=== PATIENT | male | born 1980 | race Caucasian/White ===

== ENCOUNTER → 2020-05-17 07:01 | Outpatient (CLI) | payer OTHER, SELFPAY ==
[2020-05-17 08:19] LABS: Hemoglobin A1C% w Est Avg Glu 5.1 % (4.0-6.0)
[2020-05-17 08:30] LABS: Cholesterol 221 mg/dL (140-199); HDL Cholesterol 60 mg/dL (40-60); LDL Cholesterol Calculated 152 mg/dL (<100); Triglycerides 43 mg/dL (35-150)
== END ==
PROVIDERS: Family Provider Family Medicine; PCP Family Medicine; Referring Provider Family Medicine; Visit Provider Family Medicine
DX: Z00.01 Encounter for general adult medical examination with abnormal findings (principal)
CPT/HCPCS: 36415; 80061; 83036

== ENCOUNTER → 2020-12-08 13:26 | Outpatient (CLI) | payer OTHER, SELFPAY ==
--- NOTE | 2020-12-08 13:29 | DI.RAD.S_ITS ---
PROCEDURE: XR FINGER LT MIN 2V INDICATIONS: l ring finger pain TECHNIQUE: AP hand, 2 views of the 4th finger(s) acquired. COMPARISON: None. FINDINGS: Bones: There is a nondisplaced fracture seen involving the mid aspect of distal phalanx of the 4th finger. No intra-articular involvement is seen. No additional fractures are detected. No suspicious lytic or blastic lesions are seen. Soft tissues: No suspicious soft tissue calcifications. IMPRESSION: Nondisplaced fracture of the distal phalanx of the 4th finger. Dictated by: Jesse Arguelles M.D. on 12/08/2020 at 12:50 Approved by: Jesse Arguelles M.D. on 12/08/2020 at 12:51
== END ==
PROVIDERS: Family Provider Family Medicine; PCP Family Medicine; Referring Provider Physician Assistant; Visit Provider Physician Assistant
DX: M79.645 Pain in left finger(s) (principal); S62.665A Nondisplaced fracture of distal phalanx of left ring finger, initial encounter for closed fracture; X58.XXXA Exposure to other specified factors, initial encounter
CPT/HCPCS: 73140

== ENCOUNTER → 2021-01-22 16:40 | Outpatient (CLI) | payer OTHER, SELFPAY ==
--- NOTE | 2021-01-22 16:41 | DI.RAD.S_ITS ---
PROCEDURE: XR HAND LT MIN 3V INDICATIONS: Follow up fracture TECHNIQUE: 3 views of the hand(s) acquired. COMPARISON: [facility], CR, XR FINGER LT MIN 2V, 12/08/2020, 13:30. FINDINGS: Bones: No previously unidentified fractures or dislocations. Carpal bones are normally aligned. No suspicious bony lesions. Continued healing 4th distal phalanx diaphyseal fracture. Virtual anatomic alignment. Soft tissues: No suspicious soft tissue calcifications. IMPRESSION: Virtual anatomic alignment during healing 4th distal phalanx fracture. Dictated by: Jose Sherman M.D. on 01/23/2021 at 10:35 Approved by: Jose Sherman M.D. on 01/23/2021 at 10:36
== END ==
PROVIDERS: Family Provider Family Medicine; PCP Family Medicine; Referring Provider Family Medicine; Visit Provider Family Medicine
DX: S62.635D Displaced fracture of distal phalanx of left ring finger, subsequent encounter for fracture with routine healing (principal); X58.XXXD Exposure to other specified factors, subsequent encounter
CPT/HCPCS: 73130

== ENCOUNTER 2021-11-25 21:53 | Emergency (ER) | payer OTHER, MEDICAID, SELFPAY ==
[2021-11-25 21:59] VITALS: BP 144/86; PULSE 64; RESP 20; TEMP 36.6; O2SAT 98; BMI 23.5
--- NOTE | 2021-11-25 22:30 | PC.NURSE ---
upon pt was somewhat cooperative with care, as time went on pt escalated with increase in talking loud, pacing increased, yelling and cursing with staff
--- NOTE | 2021-11-25 22:55 | PC.NURSE ---
patient's behavior has escalated,he lacks insight and is pacing and talking loudlfy and rapidly.DR Cha notified and is in room.
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
[2021-11-25] MEDS: OLANZapine ODT 10 MG TAB PO (23:06)
[2021-11-25 23:25] LABS: Add Manual Diff / Slide Review NO; Basophils Absolute Auto 100 /uL (0-100); Basophils Percent Auto 0.9 % (0-2); Eosinophils Absolute Auto 100 /uL (0-450); Eosinophils Percent Auto 0.6 % (2-4); Hematocrit 39.1 % (41-53); Hemoglobin 13.4 g/dL (13.5-17.5); Lymphocytes Absolute Auto 2200 /uL (1100-4500); Lymphocytes Percent Auto 19.6 % (25-40); Mean Corpuscular HGB Conc 34.3 % (30-36); Mean Corpuscular Hemoglobin 32.4 PG (26-34); Mean Corpuscular Volume 94.6 fL (80-100); Monocytes Absolute Auto 1100 /uL (0-900); Monocytes Percent Auto 9.9 % (3-14); Neutrophils Absolute Auto 7800 /uL (1500-7000); Platelet Count 472 X10^3/uL (150-400); Red Blood Cell Count 4.14 X10^6/uL (4.5-5.9); Red Cell Distribution Width 13.1 % (11.6-14.8); White Blood Cell Count 11.3 X10^3/uL (4.5-11.0)
[2021-11-25 23:32] LABS: Appearance Urine UA CLEAR; Bilirubin Urine UA NEGATIVE (NEGATIVE); Color Urine UA YELLOW; Glucose Urine UA NEGATIVE (Negative); Ketones Urine UA NEGATIVE (NEGATIVE); Leukocyte Esterase Urine UA NEGATIVE (NEGATIVE); Nitrite Urine UA NEGATIVE (Negative); Occult Blood Urine UA NEGATIVE (Negative); Protein Urine UA NEGATIVE (Negative); Specific Gravity Urine UA <=1.005 (1.000-1.035); Urobilinogen Urine UA 0.2 E.U./dL (0.2); pH Urine UA 6.5 (4.5-8.0)
[2021-11-25 23:34] LABS: Alanine Aminotransferase 53 IU/L (<50); Albumin 5.3 g/dL (3.5-5.0); Albumin Globulin Ratio 1.4 (1.0-2.8); Alkaline Phosphatase 64 U/L (38-126); Aspartate Aminotransferase 82 IU/L (17-59); BUN Creatinine Ratio 8.9 (6-22); Bilirubin Total 1.4 mg/dL (0.2-1.3); Blood Urea Nitrogen 7 mg/dL (9-20); Calcium 9.8 mg/dL (8.4-10.2); Carbon Dioxide 24 mmol/L (22-32); Chloride 102 mmol/L (98-107); Estimated Glomerular Filt Rate > 60 mL/min (>60); Ethanol (ETOH) < 10 mg/dL; Globulin 3.7 g/dL (1.7-4.1); Glucose 135 mg/dL (70-100); HEMOLYSIS < 15 (0-50); Potassium 3.5 mmol/L (3.4-5.1); Sodium 135 mmol/L (137-145)
[2021-11-25 23:40] LABS: Ur Creatinine 20 (Normal); Ur Specific Gravity <1.005 (Normal); Urine pH 6.5 (Normal)
[2021-11-25 23:41] LABS: UR Morphine/Opiate cutoff 300 Negative (Negative); Urine Amphetamines Negative (Negative); Urine Barbiturates Negative (Negative); Urine Benzodiazepines Negative (Negative); Urine Cocaine Negative (Negative); Urine MDMA Negative (Negative); Urine Methadone Negative (Negative); Urine Methamphetamines Negative (Negative); Urine Oxycodone Negative (Negative); Urine Phencyclidine Negative (Negative); Urine Tetrahydrocannabinol Positive (Negative); Urine Tricyclic Antidepressant Negative (Negative)
[2021-11-26 01:27] LABS: Bacteria Urine None Seen; Culture Indicated Urine Cult Not Indicated; RBC Urine None Seen (0-5/HPF); WBC Urine None Seen (0-5/HPF)
[2021-11-26 03:24] VITALS: BP 140/84; PULSE 72; RESP 18; O2SAT 99
--- NOTE | 2021-11-26 07:46 | PC.NURSE ---
pt spouse called, pt stated i could share information with her. she was concerned that he would be released. the police have put her up at different location, not at their home. she explained she wanted to know how long she had to do things, i explained if she is in fear of her safety to always assume he could walk out of here and to keep herself safe.
--- NOTE | 2021-11-26 09:39 | PC.NURSE ---
Mom came to visit patient. pt refused to see mother. Wanted me to tell her only that he loved her and he will contact her in a week. Pt ok'd that I give his mom his car keys. Mom reported that she needed to move it or it would be towed. pt is calm . mom updated only on what patient asked me to tell her.
[2021-11-26 10:25] LABS: COVID19 -Nasal RAPID Negative (Negative)
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
[2021-11-26 12:43] VITALS: BP 158/92; PULSE 63; RESP 18; TEMP 36.8; O2SAT 99
--- NOTE | 2021-11-26 14:15 | PC.NURSE ---
on the phone with DCR.
--- NOTE | 2021-11-26 14:18 | PC.NURSE ---
Pt speaking with Charlotte with DCR on the Ipad
--- NOTE | 2021-11-26 14:40 | PC.NURSE ---
Pt finished talking with Charlotte from DCR and is now reading magazines.
[2021-11-26 19:24] VITALS: BP 138/81; PULSE 62; RESP 18; O2SAT 100
[2021-11-26 19:26] VITALS: TEMP 36.3
[2021-11-26 21:24] VITALS: BP 138/92; PULSE 68; RESP 18; O2SAT 100
== END 2021-11-26 21:34 ==
PROVIDERS: Emergency Medicine; Emergency Provider Emergency Medicine; Family Provider Family Medicine; PCP Family Medicine
DX: F30.9 Manic episode, unspecified (principal); F12.90 Cannabis use, unspecified, uncomplicated; Z20.822 Contact with and (suspected) exposure to COVID-19
CPT/HCPCS: 36415; 80053; 80305; 80320; 81001; 85025; 87635; 99284; C9803

== ENCOUNTER 2021-12-20 19:33 | Emergency (ER) | payer OTHER, SELFPAY ==
[2021-12-20 19:43] VITALS: BP 131/77; PULSE 70; RESP 18; TEMP 36.5; O2SAT 99; BMI 25.0
--- NOTE | 2021-12-20 20:40 | PC.NURSE ---
pt states he takes lithium and risperdal and he said I know if you start vomiting there is a concern with taking these medications denies any diarrhea or abd pain
[2021-12-20] MEDS: ONDANSETRON 4 MG/2 ML INJ IV (21:31)
[2021-12-20] MEDS: SODIUM CHLORIDE 0.9% 1,000 ML 1000 ML IV (21:31)
[2021-12-20] MEDS: PANTOPRAZOLE 40 MG VIAL IV (21:31)
[2021-12-20 21:52] LABS: Add Manual Diff / Slide Review NO; Basophils Absolute Auto 100 /uL (0-100); Basophils Percent Auto 0.8 % (0-2); Eosinophils Absolute Auto 200 /uL (0-450); Eosinophils Percent Auto 2.5 % (2-4); Hematocrit 35.1 % (41-53); Hemoglobin 12.2 g/dL (13.5-17.5); Lymphocytes Absolute Auto 1300 /uL (1100-4500); Lymphocytes Percent Auto 15.4 % (25-40); Mean Corpuscular HGB Conc 34.8 % (30-36); Mean Corpuscular Hemoglobin 32.7 PG (26-34); Mean Corpuscular Volume 93.9 fL (80-100); Monocytes Absolute Auto 500 /uL (0-900); Monocytes Percent Auto 6.5 % (3-14); Neutrophils Absolute Auto 6300 /uL (1500-7000); Neutrophils Percent Auto 74.8 % (50-75); Platelet Count 359 X10^3/uL (150-400); Red Blood Cell Count 3.74 X10^6/uL (4.5-5.9); Red Cell Distribution Width 13.3 % (11.6-14.8); White Blood Cell Count 8.4 X10^3/uL (4.5-11.0)
[2021-12-20 22:01] LABS: Alanine Aminotransferase 70 IU/L (<50); Albumin 4.2 g/dL (3.5-5.0); Albumin Globulin Ratio 1.4 (1.0-2.8); Alkaline Phosphatase 45 U/L (38-126); Aspartate Aminotransferase 44 IU/L (17-59); BUN Creatinine Ratio 17.4 (6-22); Bilirubin Total 0.8 mg/dL (0.2-1.3); Blood Urea Nitrogen 12 mg/dL (9-20); Calcium 8.9 mg/dL (8.4-10.2); Carbon Dioxide 25 mmol/L (22-32); Chloride 103 mmol/L (98-107); Estimated Glomerular Filt Rate > 60 mL/min (>60); Globulin 3.1 g/dL (1.7-4.1); Glucose 110 mg/dL (70-100); HEMOLYSIS < 15 (0-50); Potassium 3.8 mmol/L (3.4-5.1); Sodium 136 mmol/L (137-145); Total Protein 7.3 g/dL (6.3-8.2)
[2021-12-20 22:08] LABS: Magnesium 1.8 mg/dL (1.6-2.3)
[2021-12-20 22:10] LABS: Lithium 0.5 mmol/L (0.6-1.2)
--- NOTE | 2021-12-20 23:02 | ED_ITS ---
HPI - Nausea/Vomiting/Diarrhea General Chief complaint: Nausea/Vomiting/Diarrhea Stated complaint: NVD Time Seen by Provider: 12/20/21 20:43 Source: patient Mode of arrival: Ambulatory History of Present Illness HPI Narrative: 41M neversmoker with history of social anxiety disorder and GERD presents with nausea and vomiting over the course of the day, concerned he has been unable to keep much other than water down. He denies any fever chills nor upper respiratory symptoms such as runny nose, sore throat or cough. He has no abdominal pain. He seems to think that his symptoms correlate with the recent change in medications in that his prescription is unchanged but he switched pharmacies and states the pills look different, this includes lithium and Risperdal which were initially filled at [facility] but for some reason the recent prescription was filled at [facility]. He is otherwise well and free of complaint, denies any exposure to bad food, recent travel or exposure to ill persons Related Data Previous Rx's Medication Instructions Recorded hydroxyzine HCl 25 mg tablet 25 mg PO BEDTIME PRN #60 tab 12/12/21 lithium carbonate 300 mg capsule 300 mg PO TID #90 cap 12/12/21 risperidone 1 mg tablet (Risperdal) 1 mg PO BID #120 tab 12/12/21 lithium carbonate 300 mg capsule 300 mg PO TID 14 Days #42 cap 12/20/21 ondansetron 4 mg disintegrating 4 mg PO TID-QID PRN #10 tab 12/20/21 tablet pantoprazole 40 mg tablet,delayed 40 mg PO DAILY #30 tab 12/20/21 release (Protonix) risperidone 1 mg tablet 1 mg PO BID #30 tab 12/20/21 Allergies Allergy/AdvReac Type Severity Reaction Status Date / Time bacitracin Allergy Unknown Verified 01/22/21 16:14 [From Neosporin ([id number])] neomycin Allergy Unknown Verified 01/22/21 16:14 [From Neosporin ([id number])] Penicillins [PENICILLINS] Allergy Unknown Verified 01/22/21 16:10 polymyxin B Allergy Unknown Verified 01/22/21 16:14 [From Neosporin ([id number])] Review of Systems Review of Systems Narrative: GENERAL: See HPI HEENT: Denies sinus pain, ear pain, sore throat, difficulty swallowing, dizziness. RESPIRATORY: See HPI CARDIOVASCULAR: Denies chest pain, palpitations, orthopnea, edema, GASTROINTESTINAL: See HPI : Denies dysuria, frequency, incontinence, hematuria, urinary retention. MUSCULOSKELETAL: denies weakness, joint pain, or bony pain SKIN: Denies rash, skin lesions, or other NEUROLOGIC: Denies weakness, headache, numbness, change in speech, confusion, seizures, incoordination. PSYCHIATRIC: No concerning psychosocial issues. 12 point review of systems is negative except for those stated above Patient History Medical History Allergies (~1977) Bipolar I disorder Chicken pox (~1983) Chronic back pain (~2017) Foot pain (~2014) Gastroesophageal reflux disease without esophagitis (05/27/15) History of seizure Hyperlipidemia Social anxiety disorder (~1977) Surgical History Anesthesia History of placement of ear tubes Status post adenoidectomy Family History Father Age: 68 Hypertension Hyperlipidemia Mother Age: 68 Hyperlipidemia Hypertension Social History Smoking Status: Never smoker Smoking Status: Never smoker Substance Use Type: marijuana Exam Narrative Exam Narrative: GENERAL: [41] year old patient appears stated age. Well-developed patient, in mild distress. Holding an emesis bag, anxious HEAD: Atraumatic. Normocephalic. EYES: Pupils equal round and reactive. Extraocular motions intact. No scleral icterus. No injection or drainage. ENT: Nose without bleeding, purulent drainage. Throat without erythema, tonsillar hypertrophy or exudate. Airway patent. NECK: Trachea midline. Non tender CARDIOVASCULAR: Regular rate and rhythm without murmurs, gallops, or rubs. RESPIRATORY: Clear to auscultation. Breath sounds equal bilaterally. No wheezes, rales, or rhonchi. GASTROINTESTINAL: Abdomen soft, non-tender, nondistended. EXTREMITIES: No edema or joint tenderness. BACK: Nontender without deformity or crepitance. No flank tenderness. NEURO: AOx3. SKIN: No rash or erythema of visible areas Initial Vital Signs Initial Vital Signs: Vital Signs Temperature 97.7 F 12/20/21 19:43 Pulse Rate 70 12/20/21 19:43 Respiratory Rate 18 12/20/21 19:43 Blood Pressure 131/77 12/20/21 19:43 Pulse Oximetry 99 12/20/21 19:43 Course Orders Ordered: Discontinued Medications Sodium Chloride (Normal Saline 0.9%) 1,000 mls @ 1,000 mls/hr IV BOLUS ONE Stop: 12/20/21 21:50 Last Infusion: 12/20/21 23:20 Dose: 0 mls/hr Documented by: Admin: 12/20/21 21:31 Dose: 1,000 mls/hr Documented by: CATRACHO Ondansetron HCl (Ondansetron 4 Mg/2 Ml Inj) 4 mg IV NOW ONE Stop: 12/20/21 20:52 Last Admin: 12/20/21 21:31 Dose: 4 mg Documented by: CATRACHO Ondansetron HCl (Ondansetron 4 Mg Odt Prepack) 1 bottle MISC SEEINSTR ONE Stop: 12/20/21 23:10 Last Admin: 12/20/21 23:14 Dose: 1 bottle Documented by: CATRACHO Pantoprazole Sodium (Pantoprazole 40 Mg Vial) 40 mg IV NOW ONE Stop: 12/20/21 20:52 Last Admin: 12/20/21 21:31 Dose: 40 mg Documented by: CATRACHO Reevaluation(s) Reevaluation #1: Significant if not complete resolution of symptoms after above-stated therapies Vital Signs Vital signs: Vital Signs - 8 hr 12/20/21 19:43 Temperature 97.7 F Pulse Rate 70 Respiratory Rate 18 Blood Pressure 131/77 Pulse Oximetry 99 MDM - Nausea/Vomiting/Diarrhea Lab Data Result diagrams: 12/20/21 21:40 12/20/21 21:40 Labs: Lab Results 12/20/21 12/20/21 12/20/21 Range/Units 21:40 21:40 21:40 WBC 8.4 (4.5-11.0) X10^3/uL RBC 3.74 L (4.5-5.9) X10^6/uL Hgb 12.2 L (13.5-17.5) g/dL Hct 35.1 L (41-53) % MCV 93.9 (80-100) fL MCH 32.7 (26-34) PG MCHC 34.8 (30-36) % RDW 13.3 (11.6-14.8) % Plt Count 359 (150-400) X10^3/uL Neut % (Auto) 74.8 (50-75) % Lymph % (Auto) 15.4 L (25-40) % [place] % (Auto) 6.5 (3-14) % Eos % (Auto) 2.5 (2-4) % Baso % (Auto) 0.8 (0-2) % Neut # (Auto) 6300 (5740-1705) /uL Lymph # (Auto) 1300 (1033-9979) /uL [place] # (Auto) 500 (0-900) /uL Eos # (Auto) 200 (0-450) /uL Baso # (Auto) 100 (0-100) /uL Sodium (137-145) mmol/L Potassium (3.4-5.1) mmol/L Chloride (98-107) mmol/L Carbon Dioxide (22-32) mmol/L BUN (9-20) mg/dL Creatinine (0.66-1.25) mg/dL Estimated GFR (>60) mL/min BUN/Creatinine Ratio (6-22) Glucose (70-100) mg/dL Calcium (8.4-10.2) mg/dL Magnesium 1.8 (1.6-2.3) mg/dL Total Bilirubin (0.2-1.3) mg/dL AST (17-59) IU/L ALT (<50) IU/L Alkaline Phosphatase (38-126) U/L Total Protein (6.3-8.2) g/dL Albumin (3.5-5.0) g/dL Globulin (1.7-4.1) g/dL Albumin/Globulin Ratio (1.0-2.8) [place] 0.5 L (0.6-1.2) mmol/L 12/20/21 Range/Units 21:40 WBC (4.5-11.0) X10^3/uL RBC (4.5-5.9) X10^6/uL Hgb (13.5-17.5) g/dL Hct (41-53) % MCV (80-100) fL MCH (26-34) PG MCHC (30-36) % RDW (11.6-14.8) % Plt Count (150-400) X10^3/uL Neut % (Auto) (50-75) % Lymph % (Auto) (25-40) % [place] % (Auto) (3-14) % Eos % (Auto) (2-4) % Baso % (Auto) (0-2) % Neut # (Auto) (8856-9227) /uL Lymph # (Auto) (4745-3515) /uL [place] # (Auto) (0-900) /uL Eos # (Auto) (0-450) /uL Baso # (Auto) (0-100) /uL Sodium 136 L (137-145) mmol/L Potassium 3.8 (3.4-5.1) mmol/L Chloride 103 (98-107) mmol/L Carbon Dioxide 25 (22-32) mmol/L BUN 12 (9-20) mg/dL Creatinine 0.69 (0.66-1.25) mg/dL Estimated GFR > 60 (>60) mL/min BUN/Creatinine Ratio 17.4 (6-22) Glucose 110 H (70-100) mg/dL Calcium 8.9 (8.4-10.2) mg/dL Magnesium (1.6-2.3) mg/dL Total Bilirubin 0.8 (0.2-1.3) mg/dL AST 44 (17-59) IU/L ALT 70 H (<50) IU/L Alkaline Phosphatase 45 (38-126) U/L Total Protein 7.3 (6.3-8.2) g/dL Albumin 4.2 (3.5-5.0) g/dL Globulin 3.1 (1.7-4.1) g/dL Albumin/Globulin Ratio 1.4 (1.0-2.8) [place] (0.6-1.2) mmol/L [facility] Narrative Medical decision making narrative: Patient with very reassuring history and physical exam. He has no signs of sepsis or significant dehydration. He feels significant if not complete resolution of symptoms after above-stated therapies. He is tolerating orals and in no pain. Vital signs are stable. Labs are unremarkable. And there is potentially a temporal relationship between his symptoms and a new prescription location, for this reason I refilled his medications and sent them to the original pharmacy. Return precautions discussed and questions answered to his apparent satisfaction Discharge Plan Departure Patient Disposition: Home Clinical Impression: Nausea & vomiting Instructions: DI for Vomiting -- Adult Activity Restrictions/Additional Instructions: *You have been diagnosed with [nausea and vomiting. As we discussed her history and physical exam are reassuring and there are no significant abnormalities in the lab work. It is hard to ignore that the symptoms started soon after your prescription being filled at a different pharmacy, but impossible to say with certainty if this is the cause. *What to do: *Please continue to take your regular medications as directed. [x ] New medication prescriptions sent to your pharmacy: [ [facility] in [place]] [ ] New medication written as a paper prescription [ ] No new medications given *Please follow up with your primary care provider in 2-3 days, call for an appointment. Let them know you were seen in the Emergency Department and that we ask that you be seen in follow up. We will electronically transmit a record of today's note if your PCP is in our system * as we discussed, please consider a clear liquid diet for the next 24-48 hours and then advance slowly as tolerated wall minimizing alcohol, caffeine and nicotine. *If you do not have a primary care provider please contact the [facility] Resource line at [phone]. They will ask some questions about your medical history and help get you set up with a doctor in the community. *Return to Emergency Department if you should have any new, worsening or concerning symptoms, such as [fever greater than 101 F, shaking chills, worsening pain, persistent vomiting or other bothersome symptoms] Prescriptions: New pantoprazole [Protonix] 40 mg tablet,delayed release (DR/EC) 40 mg PO DAILY Qty: 30 0RF ondansetron 4 mg tablet,disintegrating 4 mg PO TID-QID PRN (Reason: nausea and vomiting) Qty: 10 0RF lithium carbonate 300 mg capsule 300 mg PO TID 14 Days Qty: 42 0RF risperidone 1 mg tablet 1 mg PO BID Qty: 30 0RF No Action hydroxyzine HCl 25 mg tablet 25 mg PO BEDTIME PRN (Reason: insomnia) Qty: 60 2RF lithium carbonate 300 mg capsule 300 mg PO TID Qty: 90 0RF risperidone [Risperdal] 1 mg tablet 1 mg PO BID Qty: 120 0RF Referrals: David Cerna MD [Primary Care Provider] - Visit Report Forms: Patient Portal/API
[2021-12-20] MEDS: ONDANSETRON 4 MG ODT PREPACK 1 BOTTLE MISC (23:14)
[2021-12-20 23:20] VITALS: BP 126/74; PULSE 68; RESP 18; O2SAT 100
== END 2021-12-20 23:22 | disposition home or self-care (01) ==
PROVIDERS: Emergency Provider Emergency Medicine; Family Provider Family Medicine; PCP Family Medicine
DX: R11.2 Nausea with vomiting, unspecified (principal)
CPT/HCPCS: 36415; 80053; 80178; 83735; 85025; 96361; 96374; 96375; 99284; C9113; J2405

== ENCOUNTER → 2022-03-04 07:07 | Outpatient (CLI) | payer OTHER, MEDICAID, SELFPAY ==
[2022-03-04 08:25] LABS: Add Manual Diff / Slide Review NO; Basophils Absolute Auto 0 /uL (0-100); Eosinophils Absolute Auto 300 /uL (0-450); Eosinophils Percent Auto 8.6 % (2-4); Hematocrit 36.9 % (41-53); Hemoglobin 12.7 g/dL (13.5-17.5); Lymphocytes Absolute Auto 1700 /uL (1100-4500); Lymphocytes Percent Auto 42.9 % (25-40); Mean Corpuscular HGB Conc 34.3 % (30-36); Mean Corpuscular Hemoglobin 32.5 PG (26-34); Mean Corpuscular Volume 94.8 fL (80-100); Monocytes Absolute Auto 500 /uL (0-900); Monocytes Percent Auto 12.3 % (3-14); Neutrophils Absolute Auto 1400 /uL (1500-7000); Neutrophils Percent Auto 35.2 % (50-75); Platelet Count 282 X10^3/uL (150-400); Red Blood Cell Count 3.89 X10^6/uL (4.5-5.9); Red Cell Distribution Width 13.3 % (11.6-14.8)
[2022-03-04 08:53] LABS: Alanine Aminotransferase 14 IU/L (<50); Albumin 4.3 g/dL (3.5-5.0); Albumin Globulin Ratio 1.6 (1.0-2.8); Alkaline Phosphatase 41 U/L (38-126); Aspartate Aminotransferase 20 IU/L (17-59); BUN Creatinine Ratio 13.6 (6-22); Bilirubin Total 1.7 mg/dL (0.2-1.3); Blood Urea Nitrogen 12 mg/dL (9-20); Calcium 9.3 mg/dL (8.4-10.2); Carbon Dioxide 28 mmol/L (22-32); Chloride 102 mmol/L (98-107); Estimated Glomerular Filt Rate > 60 mL/min (>60); Globulin 2.7 g/dL (1.7-4.1); Glucose 92 mg/dL (70-100); HEMOLYSIS < 15 (0-50); Potassium 4.7 mmol/L (3.4-5.1); Sodium 137 mmol/L (137-145)
== END ==
PROVIDERS: Family Provider Family Medicine; PCP Family Medicine; Referring Provider Family Medicine; Visit Provider Family Medicine
DX: D64.9 Anemia, unspecified (principal); R74.8 Abnormal levels of other serum enzymes
CPT/HCPCS: 36415; 80053; 85025

== ENCOUNTER → 2022-10-21 07:08 | Outpatient (CLI) | payer OTHER, MEDICAID, SELFPAY ==
[2022-10-21 07:51] LABS: Add Manual Diff / Slide Review NO; Basophils Absolute Auto 100 /uL (0-100); Basophils Percent Auto 0.9 % (0-2); Eosinophils Absolute Auto 500 /uL (0-450); Eosinophils Percent Auto 8.1 % (2-4); Hematocrit 38.4 % (41-53); Hemoglobin 12.9 g/dL (13.5-17.5); Lymphocytes Absolute Auto 2800 /uL (1100-4500); Lymphocytes Percent Auto 47.1 % (25-40); Mean Corpuscular HGB Conc 33.7 % (30-36); Mean Corpuscular Hemoglobin 32.1 PG (26-34); Mean Corpuscular Volume 95.3 fL (80-100); Monocytes Absolute Auto 700 /uL (0-900); Neutrophils Absolute Auto 1900 /uL (1500-7000); Neutrophils Percent Auto 31.9 % (50-75); Platelet Count 308 X10^3/uL (150-400); Red Blood Cell Count 4.03 X10^6/uL (4.5-5.9); Red Cell Distribution Width 13.2 % (11.6-14.8); White Blood Cell Count 5.9 X10^3/uL (4.5-11.0)
[2022-10-21 08:42] LABS: HEMOLYSIS < 15 (0-50); Iron 149 ug/dL (49-181)
[2022-10-21 08:44] LABS: Bilirubin Direct 0.1 mg/dL (0.0-0.4); Bilirubin Total 1.4 mg/dL (0.2-1.3)
[2022-10-21 08:53] LABS: Percent Iron Saturation 49 % (20-50); Total Iron Binding Capacity 306 ug/dL (261-462); Transferrin 255 mg/dL (206-381)
[2022-10-21 09:09] LABS: TSH w/ Reflex to FT4 3.18 uIU/mL (0.47-4.68)
[2022-10-21 09:13] LABS: Ferritin 67 ng/mL (18-464)
[2022-10-21 09:27] LABS: Vitamin B12 812 pg/mL (239-931)
== END ==
PROVIDERS: Family Provider Family Medicine; PCP Family Medicine; Referring Provider Family Medicine; Visit Provider Family Medicine
DX: D64.9 Anemia, unspecified (principal); E78.5 Hyperlipidemia, unspecified; F31.9 Bipolar disorder, unspecified; R20.9 Unspecified disturbances of skin sensation; K21.9 Gastro-esophageal reflux disease without esophagitis
CPT/HCPCS: 36415; 82247; 82248; 82607; 82728; 83540; 83550; 84443; 85025

== ENCOUNTER → 2022-12-15 11:13 | Day surgery (SDC) | payer OTHER, MEDICAID, SELFPAY ==
[2022-12-15] MEDS: LACTATED RINGERS 1,000 ML 200 ML IV (11:25)
[2022-12-15 11:32] VITALS: BP 118/74; PULSE 61; RESP 18; TEMP 36.6; O2SAT 96; BMI 27.3
--- NOTE | 2022-12-15 11:47 | PM.HP.1 ---
History of Present Illness History of Present Illness Date Patient Seen: 12/15/22 Time Patient Seen: 11:47 Chief complaint: Dx Colonoscopy Narrative: 42-year-old man with iron-deficiency anemia here for diagnostic colonoscopy. No prior colonoscopy. No abdominal pain nausea unintentional weight loss blood per rectum. No personal or family history of intestinal malignancy. [facility] Medical History Allergies (~1977) Anemia Bipolar I disorder Chicken pox (~1983) Chronic back pain (~2017) Foot pain (~2014) Gastroesophageal reflux disease without esophagitis (05/27/15) History of seizure Hyperlipidemia Major depression Social anxiety disorder (~1977) Surgical History Anesthesia History of placement of ear tubes Status post adenoidectomy Family History Father Age: 69 Hypertension Hyperlipidemia Mother Age: 69 Hyperlipidemia Hypertension Social History household members: spouse Smoking Status: Never smoker alcohol intake: former Meds Home Medications and Allergies Home Medications Medication Instructions Recorded Confirmed Type magnesium glycinate 100 mg PO 3XD 01/27/22 12/15/22 History escitalopram oxalate 20 mg tablet See Rx Instructions .Route 11/05/22 12/15/22 Rx .COMPLEX #90 tabs quetiapine 25 mg tablet 25 mg PO BEDTIME #90 tabs 11/05/22 12/15/22 Rx finasteride 1 mg tablet 1 mg PO DAILY 12/15/22 12/15/22 History lamotrigine 25 mg tablet See Rx Instructions .Route 12/15/22 12/15/22 Rx .COMPLEX #90 tabs Allergies Allergy/AdvReac Type Severity Reaction Status Date / Time bacitracin Allergy Unknown Verified 12/15/22 11:26 [From Neosporin ([id number])] neomycin Allergy Unknown Verified 12/15/22 11:26 [From Neosporin ([id number])] Penicillins [PENICILLINS] Allergy Unknown Verified 12/15/22 11:26 polymyxin B Allergy Unknown Verified 12/15/22 11:26 [From Neosporin ([id number])] Exam Vital Signs (past 8 hours): - 12/15/22 11:32 Temperature 97.8 F Pulse Rate 61 Respiratory Rate 18 Blood Pressure 118/74 Pulse Oximetry 96 Oxygen Delivery Method Room Air Oxygen Delivery Method Room Air Narrative Exam Narrative: General adult man alert oriented no acute distress Chest nonlabored respiration Abdomen soft nontender nondistended Assessment & Plan Assessment and plan (1) Anemia: Qualifiers: Anemia type: unspecified type Qualified Code(s): D64.9 - Anemia, unspecified Status: Acute Assessment & Plan narrative: 42-year-old man with anemia here for diagnostic colonoscopy. Technical details were discussed. Risks, benefits, alternatives explained. Risks including but not limited to myocardial infarction, aspiration, bleeding, pain, missed lesion, incomplete examination, need for further radiographic studies, colonic perforation, and need for major abdominal surgery were discussed. All questions were answered to their satisfaction, and they are in agreement with this plan.
--- NOTE | 2022-12-15 12:02 | PM.OP.COLON ---
Operative Date/Time/Diagnoses Date of procedure: 12/15/22 Time of procedure: 12:02 Pre-op diagnosis: Anemia Procedure & Clinicians Study performed: Colonoscopy Same procedure as scheduled: Yes Indications: 42-year-old man with iron-deficiency anemia here for diagnostic colonoscopy Surgeon: Yeyo Fournier Procedure Notes Procedure in detail: The history and physical was performed/updated and the patient is ASA class is 2. The procedure was discussed in detail with the patient. Potential risks complications including infection, bleeding, missed diagnosis, perforation, need for surgery, and were explained. Their questions were answered and informed consent was obtained. Patient was brought to the procedure room and placed standard monitoring equipment. The patient's vital signs were monitored continuously throughout the entire procedure. Prior to starting time-out was performed. The patient was placed in the left lateral recumbent position. Procedural sedation was administered by anesthesia. Examination began with a thorough inspection of the perianal area there was no evidence of fissures, fistulae, external hemorrhoids or cutaneous malignancy. The colonoscopy scope was then placed into the anal canal and was advanced to the cecum, which was identified by the ileocecal valve, the appendiceal orifice and the confluence of the taenia. The scope was then slowly withdrawn examining colon thoroughly in all directions, irrigating it of any residual stool. Entirely normal colon. No masses polyps or inflammation. The patient tolerated the procedure well. They will be discharged once criteria are met. The prep was of good/excellent quality. The withdrawl time was 6 minutes. Specimen(s): none sent Impression: Normal colonoscopy Post-procedure Recommendations: Colonoscopy in 10 years Disposition: same day surgery
[2022-12-15 12:26] VITALS: BP 93/69; PULSE 53; RESP 14; TEMP 36.2; O2SAT 95
[2022-12-15 12:29] VITALS: BP 97/68; PULSE 52; RESP 16; O2SAT 96
[2022-12-15 12:35] VITALS: BP 104/77; PULSE 54; RESP 15; O2SAT 98
== END | disposition home or self-care (01) ==
PROVIDERS: Family Provider Family Medicine; PCP Family Medicine; Referring Provider Surgery; Visit Provider Surgery
PROC: 0DJD8ZZ Inspection of Lower Intestinal Tract, Via Natural or Artificial Opening Endoscopic (ICD-10-PCS; CPT 45378; principal; 2022-12-15 12:30)
DX: D50.9 Iron deficiency anemia, unspecified (principal)
CPT/HCPCS: 45378; J2704

== ENCOUNTER → 2024-06-02 07:46 | Outpatient (CLI) | payer OTHER, SELFPAY ==
--- NOTE | 2024-06-02 07:47 | DI.CT.S_ITS ---
PROCEDURE: CT SOFT TISSUE NECK W CON INDICATIONS: Chronic salivary gland swelling; please evaluate for salivary stones TECHNIQUE: After the administration of intravenous contrast, 3.0 mm axial sections acquired from the sella to the aortic arch. Additional oblique axial 3.0 mm sections acquired through the pharynx. 3 mm thick coronal and sagittal reformats were generated. For radiation dose reduction, the following was used: automated exposure control. COMPARISON: [facility], CT, SOFT TISSUE NECK W CONTRAST, 10/17/2015, 15:02. FINDINGS: Image quality: There is streak artifact seen through the level of the shoulders. Lymph nodes: No enlarged lymph nodes seen throughout the neck. Vessels: Visualized vasculature appears patent. Neck spaces: The oropharynx, nasopharynx, and pharynx demonstrate no mucosal lesions. The vocal cords, false vocal cords, pyriform sinuses, epiglottis, vallecula, and tongue base all appear normal. Extramucosal spaces appear unremarkable. Glands: The area of clinical concern is marked of the left cheek. At this site, there is a dilated right parotid duct seen. No stones are seen. There is also a dilated duct seen on the left side, although not as prominent as on the left. The parotid glands themselves are small in size. The submandibular glands demonstrate mild hypertrophy, without focal abnormalities. No submandibular duct stones are seen. Thyroid gland demonstrates no significant abnormality. Miscellaneous: Visualized brain and orbits appear normal. Lung apices appear clear. Superficial soft tissues appear normal. Bones: No suspicious bony lesions. Visualized sinuses and mastoids appear unremarkable. IMPRESSION: Bilateral dilated parotid ducts are seen, yet without parotid duct stone seen. The parotid ducts are larger than in 2016. The parotid glands themselves appear small in size. Dictated by: Jesse Arguelles M.D. on 06/02/2024 at 15:15 Approved by: Jesse Arguelles M.D. on 06/02/2024 at 15:17
[2024-06-02 08:25] LABS: Add Manual Diff / Slide Review NO; Basophils Absolute Auto 0 /uL (0-100); Eosinophils Absolute Auto 500 /uL (0-450); Eosinophils Percent Auto 9.2 % (2-4); Hematocrit 40.6 % (41-53); Hemoglobin 13.9 g/dL (13.5-17.5); Lymphocytes Absolute Auto 2100 /uL (1100-4500); Lymphocytes Percent Auto 42.2 % (25-40); Mean Corpuscular HGB Conc 34.2 % (30-36); Mean Corpuscular Hemoglobin 32.3 PG (26-34); Mean Corpuscular Volume 94.3 fL (80-100); Monocytes Absolute Auto 600 /uL (0-900); Monocytes Percent Auto 11.2 % (3-14); Neutrophils Absolute Auto 1800 /uL (1500-7000); Neutrophils Percent Auto 36.4 % (50-75); Platelet Count 361 X10^3/uL (150-400); Red Cell Distribution Width 13.4 % (11.6-14.8)
[2024-06-02 08:37] LABS: Alanine Aminotransferase 20 IU/L (<50); Albumin 4.8 g/dL (3.5-5.0); Albumin Globulin Ratio 1.7 (1.0-2.8); Alkaline Phosphatase 55 U/L (38-126); Aspartate Aminotransferase 26 IU/L (17-59); BUN Creatinine Ratio 11.1 (6-22); Bilirubin Direct 0.1 mg/dL (0.0-0.4); Bilirubin Total 1.5 mg/dL (0.2-1.3); Blood Urea Nitrogen 11 mg/dL (9-20); Carbon Dioxide 29 mmol/L (22-32); Chloride 101 mmol/L (98-107); Cholesterol 249 mg/dL (140-199); Estimated Glomerular Filt Rate > 60 mL/min (>60); Globulin 2.9 g/dL (1.7-4.1); Glucose 91 mg/dL (70-100); HDL Cholesterol 83 mg/dL (40-60); HEMOLYSIS < 15 (0-50); Iron 169 ug/dL (49-181); LDL Cholesterol Calculated 152 mg/dL (<100); Potassium 4.4 mmol/L (3.4-5.1); Sodium 137 mmol/L (137-145); Total Protein 7.7 g/dL (6.3-8.2); Triglycerides 72 mg/dL (35-150)
[2024-06-02 08:47] LABS: Percent Iron Saturation 57 % (20-50); Total Iron Binding Capacity 295 ug/dL (261-462); Transferrin 245 mg/dL (206-381)
[2024-06-02 09:08] LABS: TSH w/ Reflex to FT4 1.49 uIU/mL (0.47-4.68)
[2024-06-02 09:13] LABS: Ferritin 88 ng/mL (18-464)
== END ==
LOC: CT 07:46
PROVIDERS: Family Provider Family Medicine; PCP Family Medicine; Referring Provider Family Medicine; Visit Provider Family Medicine
DX: Z00.00 Encounter for general adult medical examination without abnormal findings (principal); K11.8 Other diseases of salivary glands; K11.5 Sialolithiasis; D64.9 Anemia, unspecified; F31.9 Bipolar disorder, unspecified; E78.5 Hyperlipidemia, unspecified; F40.10 Social phobia, unspecified
CPT/HCPCS: 36415; 70491; 80053; 80061; 82248; 82728; 83540; 83550; 84443; 85025; Q9967

== ENCOUNTER → 2025-04-27 08:36 | Outpatient (CLI) | payer OTHER, SELFPAY ==
[2025-04-27 10:40] LABS: Lithium < 0.2 mmol/L (0.6-1.2)
[2025-04-27 10:44] LABS: Blood Urea Nitrogen 18 mg/dL (9-20); Calcium 9.5 mg/dL (8.4-10.2); Carbon Dioxide 29 mmol/L (22-32); Chloride 100 mmol/L (98-107); Cholesterol 235 mg/dL (140-199); Estimated Glomerular Filt Rate > 60 mL/min (>60); Glucose 92 mg/dL (70-99); HDL Cholesterol 82 mg/dL (40-60); HEMOLYSIS 23 (0-50); Potassium 4.9 mmol/L (3.4-5.1); Sodium 138 mmol/L (137-145); Triglycerides 84 mg/dL (35-150)
[2025-04-27 10:50] LABS: Hemoglobin A1C% w Est Avg Glu 5.1 % (4.0-6.0)
[2025-04-27 11:00] LABS: Vitamin D 25 Hydroxy (D3) 23.7 ng/mL (30.0-100.0)
[2025-04-27 11:14] LABS: TSH w/ Reflex to FT4 2.34 uIU/mL (0.47-4.68)
== END ==
PROVIDERS: Family Provider Family Medicine; PCP Family Medicine; Referring Provider Student in an Organized Health Care Education/Training Program; Visit Provider Student in an Organized Health Care Education/Training Program
DX: F31.9 Bipolar disorder, unspecified (principal); Z79.899 Other long term (current) drug therapy
CPT/HCPCS: 36415; 80048; 80061; 80178; 82306; 83036; 84443